=== PATIENT | female | born 1955 | race Caucasian/White ===

== ENCOUNTER 2022-07-02 13:03 | Emergency (ER) | payer BC ==
--- OUTSIDE RECORDS SUMMARY | 2022-07-02 13:07 | XMS REPORT | Continuity of Care Document ---
:1955 Author Organization [facility] t Address [address] [place] [address] Care Team Providers Name Role Phone Asked, No Pcp Primary Care Physician Unavailable Problems Condition Condition Condition Status Onset Resolution Last Treating Co mments Source Name Details Category Date Date Treatment Clinician Date Angina at Angina at Disease Active Met hodi rest rest [facility] 00:00: Hospita 00 l CAD CAD Disease Active 2016-06 Methodi (coronary (coronary 06-25 st artery artery 00:00: Hospita disease) disease) 00 l S/P CABG x S/P CABG x Disease Active 2016-06 M ethodi 2 <SOLIS to 2 <SOLIS 06-25 st LAD, DIMITRY to LAD, 00:00: Hospit a (Y-Graft DIMITRY 00 l off SOLIS) (Y-Graft to RAMUS> off SOLIS) to RAMUS> Acute Acute Disease Active 2016-06 Methodi pulmonary pulmonary 06-25 st insufficie insufficie 00:00: Ho spita ncy ncy 00 l Ascending Ascending Disease Active 2016-06 Met hodi aortic aortic 06-25 st aneurysm aneurysm 00:00: Hospit a (4.5 cm) (4.5 cm) 00 l Bicuspid Bicuspid Disease Active 2016-06 Metho di aortic aortic 06-25 st valve valve 00:00: Hospita 00 l Accelerate Accelerate Disease Active 2016-06 M ethodi d d 06-25 st hypertensi hypertensi 00:00: Ho spita on on 00 l Postoperat Postoperat Disease Active 2016-06 M ethodi lionel anemia lionel anemia 06-25 due to due to 00:00: Hospita acute acute 00 l blood loss blood loss 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 06-25 st 00:00: Hospita 00 l Metabolic Metabolic Disease Active 2016-06 Met hodi acidosis acidosis 06-25 st 00:00: Hospita 00 l Allergies, Adverse Reactions, Alerts Allergy Allergy Status Severity Reaction(s) Onset Inactive Treating Comm ents Source Name Type Date Date Clinician Al Lourenetta Active 2016-06 Severe Method i one ty to 06-[address] adverse 00:00: Hospita reaction 00 l s to drug Family History Family Member Diagnosis Comments Start Date Stop Date Source Natural father Heart disease [facility] Paternal aunt [facility] Paternal grandfather Heart disease [facility] Natural sister Cancer [facility] Natural sister Heart disease [facility] Social History Social Habit Start Date Stop Date Quantity Comments Source Alcohol intake 2019-05-30 2019-05-30 Current drinker Metho dist 00:00:00 00:00:00 of [facility] ([facility]) Alcohol Comment 2018-01-13 2018-01-13 socially [facility] 00:00:00 00:00:00 Hospital Tobacco use and 2018-01-12 2018-01-12 Smokeless tobacco [facility] exposure 00:00:00 00:00:00 non-user Hospital Sex Assigned At [birth year] [facility] 00:00[facility]00 00:[facility]:00 Hospital Smoking Status Start Date Stop Date Source Never smoked tobacco [facility] Medications Ordered Filled Start Stop Current Ordering Indication Dosage Frequency Signature Comments Components Source Medication Medication Date Date Medication? Clinician (SIG) Name Name LELO 2021-06 No LEVOTHYROXI 0-24 NE SODIUM 00:00: 150MCG TAB 00 LELO 2021-06 No LEVOTHYROXI 0-24 NE SODIUM 00:00: 150MCG TAB 00 LELO 2021-06 No LEVOTHYROXI 0-24 NE SODIUM 00:00: 150MCG TAB 00 Dose No Unknown 7-20 00:00: 00 Dose 2021-0 No Unknown 7-20 00:00: 00 Dose 2021-0 No Unknown 7-20 00:00: 00 levothyroxi 2021- No 1mcg ne 150 mcg 6-27 tablet 00:00: 00 levothyroxi 2021- No 1mcg ne 150 mcg 6-27 tablet 00:00: 00 levothyroxi 2022-0 No 1mcg ne 150 mcg 6-27 tablet 00:00: 00 levothyroxi 2022-0 No 1mcg ne 150 mcg 5-26 tablet 00:00: 00 levothyroxi 2022-0 No 1mcg ne 150 mcg 5-26 tablet 00:00: 00 levothyroxi 2022-0 No 1mcg ne 150 mcg 5-26 tablet 00:00: 00 Dose 2022-0 No Unknown 4-22 00:00: 00 Dose 2022-0 No Unknown 4-22 00:00: 00 Dose 2022-0 No Unknown 4-22 00:00: 00 Dose 2022-0 No Unknown 3-10 00:00: 00 Dose 2022-0 No Unknown 3-10 00:00: 00 Dose 2022-0 No Unknown 3-10 00:00: 00 Dose 2022-0 No Unknown 3-10 00:00: 00 Dose 2022-0 No Unknown 3-10 00:00: 00 Dose 2022-0 No Unknown 3-10 00:00: 00 Dose 2022-0 No Unknown 3-10 00:00: 00 Dose 2022-0 No Unknown 3-10 00:00: 00 Dose 2022-0 No Unknown 3-10 00:00: 00 Dose 2022-0 No Unknown 3-10 00:00: 00 Dose 2022-0 No Unknown 3-10 00:00: 00 Dose 2022-0 No Unknown 3-10 00:00: 00 Dose 2022-0 No Unknown 3-10 00:00: 00 Dose 2022-0 No Unknown 3-10 00:00: 00 Dose 2022-0 No Unknown 3-10 00:00: 00 Dose 2022-0 No Unknown 3-10 00:00: 00 Dose 2022-0 No Unknown 3-10 00:00: 00 Dose 2022-0 No Unknown 3-10 00:00: 00 Dose 2022-0 No Unknown 3-10 00:00: 00 Dose 2022-0 No Unknown 3-10 00:00: 00 Dose 2022-0 No Unknown 3-10 00:00: 00 Dose 2022-0 No Unknown 3-10 00:00: 00 Dose 2022-0 No Unknown 3-10 00:00: 00 Dose 2022-0 No Unknown 3-10 00:00: 00 Dose 2022-0 No Unknown 3-10 00:00: 00 Dose 2022-0 No Unknown 3-10 00:00: 00 Dose 2022-0 No Unknown 3-10 00:00: 00 Dose 2022-0 No Unknown 3-10 00:00: 00 Dose 2022-0 No Unknown 3-10 00:00: 00 Dose 2022-0 No Unknown 3-10 00:00: 00 Dose 2022-0 No Unknown 3-10 00:00: 00 Dose 2022-0 No Unknown 3-10 00:00: 00 Dose 2022-0 No Unknown 3-10 00:00: 00 Dose 2022-0 No Unknown 3-10 00:00: 00 Dose 2022-0 No Unknown 3-10 00:00: 00 Dose 2022-0 No Unknown 3-10 00:00: 00 Dose 2022-0 No Unknown 3-08 00:00: 00 Dose 2022-0 No Unknown 3-08 00:00: 00 Dose 2022-0 No Unknown 3-08 00:00: 00 Dose 2022-0 No Unknown 3-08 00:00: 00 Dose 2022-0 No Unknown 3-08 00:00: 00 Dose 2022-0 No Unknown 3-08 00:00: 00 levothyroxi 2022-0 No 1mcg ne 150 mcg 2-18 tablet 00:00: 00 levothyroxi 2022-0 No 1mcg ne 150 mcg 2-18 tablet 00:00: 00 levothyroxi 2-0 No 1mcg ne 150 mcg 2-18 tablet 00:00: 00 phentermine 1-1 No 1mg 37.5 mg 2-13 tablet 00:00: 00 phentermine 1-1 No 1mg 37.5 mg 2-13 tablet 00:00: 00 phentermine 1-1 No 1mg 37.5 mg 2-13 tablet 00:00: 00 amoxicillin 1-0 No 1mg 500 mg 6-28 capsule 00:00: 00 amoxicillin 1-0 No 1mg 500 mg 6-28 capsule 00:00: 00 amoxicillin 1-0 No 1mg 500 mg 6-28 capsule 00:00: 00 levothyroxi 2018-1 Yes 150ug QD Take 150 M ethodi ne 1-[address] (SYNTHROID, 14:33: mouth Hospi ta LEVOXYL) 37 every l 150 mcg morning. tablet carvedilol 2018-06 Yes 3.125mg Q.5D Take 3.125 Methodi (COREG) 1-[address] 3.125 MG 14:33: mouth 2 Hospit a tablet 37 (two) l times a day with meals. clopidogrel 2018-06 Yes 75mg QD Take 75 mg Methodi (PLAVIX) 75 1-[address] mg tablet 14:33: daily. Hospit a 37 l potassium 2018-06 Yes 10meq Q.5D Take 10 Meth renea chloride 1-[address] (MICRO-K) 14:33: mouth 2 Hospi ta 10 MEQ CR 37 (two) l capsule times a day. valsartan 2018-06 Yes 80mg QD Take 80 mg Me thodi (DIOVAN) 80 1-[address] MG tablet 14:33: daily. Hospit a 37 l furosemide 2018-06 Yes 40mg Q24H Take 40 mg M ethodi (LASIX) 40 1-[address] mg tablet 14:33: daily as Hosp lorna 37 needed. l aspirin 2018-06 Yes 81mg QD Take 81 mg Meth renea (ECOTRIN) 1-[address] 81 MG 14:33: daily. Hospita enteric 37 l coated tablet magnesium 2018-06 Yes 400mg QD Take 400 Met hodi oxide 1-[address] (MAG-OX) 14:33: mouth Hospita 400 mg 37 daily. l (241.3 mg magnesium) tablet levothyroxi 2018-06 Yes 150ug QD Take 150 M ethodi ne 1-[address] (SYNTHROID, 14:33: mouth Hospi ta LEVOXYL) 37 every l 150 mcg morning. tablet carvedilol 2018-06 Yes 3.125mg Q.5D Take 3.125 Methodi (COREG) 1-[address] 3.125 MG 14:33: mouth 2 Hospit a tablet 37 (two) l times a day with meals. clopidogrel 2018-06 Yes 75mg QD Take 75 mg Methodi (PLAVIX) 75 1-[address] mg tablet 14:33: daily. Hospit a 37 l potassium 2018-06 Yes 10meq Q.5D Take 10 Meth renea chloride 1-[address] (MICRO-K) 14:33: mouth 2 Hospi ta 10 MEQ CR 37 (two) l capsule times a day. valsartan 2018-06 Yes 80mg QD Take 80 mg Me thodi (DIOVAN) 80 1-[address] MG tablet 14:33: daily. Hospit a 37 l furosemide 2018-06 Yes 40mg Q24H Take 40 mg M ethodi (LASIX) 40 1-[address] mg tablet 14:33: daily as Hosp lorna 37 needed. l aspirin 2018-06 Yes 81mg QD Take 81 mg Meth renea (ECOTRIN) 1-[address] 81 MG 14:33: daily. Hospita enteric 37 l coated tablet levothyroxi 2018-06 Yes 150ug QD Take 150 M ethodi ne 1-[address] (SYNTHROID, 14:33: mouth Hospi ta LEVOXYL) 37 every l 150 mcg morning. tablet carvedilol 2018-06 Yes 3.125mg Q.5D Take 3.125 Methodi (COREG) 1-[address] 3.125 MG 14:33: mouth 2 Hospit a tablet 37 (two) l times a day with meals. clopidogrel 2018-06 Yes 75mg QD Take 75 mg Methodi (PLAVIX) 75 1-[address] mg tablet 14:33: daily. Hospit a 37 l potassium 2018-06 Yes 10meq Q.5D Take 10 Meth renea chloride 1-[address] (MICRO-K) 14:33: mouth 2 Hospi ta 10 MEQ CR 37 (two) l capsule times a day. valsartan 2018-06 Yes 80mg QD Take 80 mg Me thodi (DIOVAN) 80 1-[address] MG tablet 14:33: daily. Hospit a 37 l magnesium 2018-06 Yes 400mg QD Take 400 Met hodi oxide 1-[address] (MAG-OX) 14:33: mouth Hospita 400 mg 37 daily. l (241.3 mg magnesium) tablet furosemide 2018-06 Yes 40mg Q24H Take 40 mg M ethodi (LASIX) 40 1-[address] mg tablet 14:33: daily as Hosp lorna 37 needed. l aspirin 2018-06 Yes 81mg QD Take 81 mg Meth renea (ECOTRIN) 1-[address] 81 MG 14:33: daily. Hospita enteric 37 l coated tablet magnesium 2019-1 Yes 400mg QD Take 400 Met hodi oxide 1-[address] (MAG-OX) 14:33: mouth Hospita 400 mg 37 daily. l (241.3 mg magnesium) tablet neomycin-po 2018-0 No 3mg/mL- lymyxin-hyd 7-30 unit/mL rocort 3.5 00:00: -% mg-10,000 00 unit/mL-1 % ear drops,susp prednisone 2018-0 No 1mg 20 mg 7-30 tablet 00:00: 00 amoxicillin 2018-0 No 1mg 875 7-30 mg-potassiu 00:00: m 00 clavulanate 125 mg tablet Bromfed DM 0 No 5mg/5 2 mg-30 7-30 mL mg-10 mg/5 00:00: mL oral 00 syrup neomycin-po 2018-0 No 3mg/mL- lymyxin-hyd 7-30 unit/mL rocort 3.5 00:00: -% mg-10,000 00 unit/mL-1 % ear drops,susp prednisone 2018-0 No 1mg 20 mg 7-30 tablet 00:00: 00 amoxicillin 2018-0 No 1mg 875 7-30 mg-potassiu 00:00: m 00 clavulanate 125 mg tablet Bromfed DM 2018-0 No 5mg/5 2 mg-30 7-30 mL mg-10 mg/5 00:00: mL oral 00 syrup neomycin-po 2018-0 No 3mg/mL- lymyxin-hyd 7-30 unit/mL rocort 3.5 00:00: -% mg-10,000 00 unit/mL-1 % ear drops,susp prednisone 2018-0 No 1mg 20 mg 7-30 tablet 00:00: 00 amoxicillin 2018-0 No 1mg 875 7-30 mg-potassiu 00:00: m 00 clavulanate 125 mg tablet Bromfed DM 2018-0 No 5mg/5 2 mg-30 7-30 mL mg-10 mg/5 00:00: mL oral 00 syrup Immunizations Ordered Immunization Filled Immunization Date Status Commen ts Source Name Name pneumococcal 2022-04-21 Completed polysacchar 00:00:00 Vital Signs Vital Name Observation Time Observation Value Comments Source BP Systolic 2022-04-21 16:58:00 159 mm[Hg] BP Diastolic 2022-04-21 16:58:00 102 mm[Hg] Weight Measured 2022-04-21 16:58:00 170.00 pounds Height Measured 2022-04-21 16:58:00 60.24 inches Body Temperature 2022-04-21 16:58:00 98.40 degrees Heart Rate 2022-04-21 16:58:00 73.00 /min Respiratory Rate 2022-04-21 16:58:00 17.00 /min BP Systolic 2022-04-19 11:47:00 163 mm[Hg] BP Diastolic 2022-04-19 11:47:00 100 mm[Hg] Weight Measured 2022-04-19 11:47:00 171.00 pounds Height Measured 2022-04-19 11:47:00 60.24 inches Body Temperature 2022-04-19 11:47:00 98.00 degrees Heart Rate 2022-04-19 11:47:00 87.00 /min Respiratory Rate 2022-04-19 11:47:00 18.00 /min BP Systolic 2021-08-17 16:46:00 195 mm[Hg] BP Diastolic 2021-08-17 16:46:00 114 mm[Hg] Weight Measured 2021-08-17 16:46:00 175.20 pounds Height Measured 2021-08-17 16:46:00 60.24 inches Body Temperature 2021-08-17 16:46:00 98.10 degrees Heart Rate 2021-08-17 16:46:00 96.00 /min Respiratory Rate 2021-08-17 16:46:00 BP Systolic 2021-05-25 16:26:00 158 mm[Hg] BP Diastolic 2021-05-25 16:26:00 84 mm[Hg] Weight Measured 2021-05-25 16:26:00 175.20 pounds Height Measured 2021-05-25 16:26:00 60.24 inches Body Temperature 2021-05-25 16:26:00 98.10 degrees Heart Rate 2021-05-25 16:26:00 78.00 /min Respiratory Rate 2021-05-25 16:26:00 BP Systolic 2021-04-10 16:50:00 157 mm[Hg] BP Diastolic 2021-04-10 16:50:00 98 mm[Hg] Weight Measured 2021-04-10 16:50:00 173.00 pounds Height Measured 2021-04-10 16:50:00 60.24 inches Body Temperature 2021-04-10 16:50:00 98.20 degrees Heart Rate 2021-04-10 16:50:00 91.00 /min Respiratory Rate 2021-04-10 16:50:00 16.00 /min BP Systolic 2020-12-08 16:50:00 153 mm[Hg] BP Diastolic 2020-12-08 16:50:00 84 mm[Hg] Weight Measured 2020-12-08 16:50:00 173.40 pounds Height Measured 2020-12-08 16:50:00 60.24 inches Body Temperature 2020-12-08 16:50:00 98.00 degrees Heart Rate 2020-12-08 16:50:00 78.00 /min Respiratory Rate 2020-12-08 16:50:00 26.00 /min BP Systolic 2019-01-09 16:36:00 135 mm[Hg] BP Diastolic 2019-01-09 16:36:00 83 mm[Hg] Weight Measured 2019-01-09 16:36:00 161.60 pounds Height Measured 2019-01-09 16:36:00 60.24 inches Body Temperature 2019-01-09 16:36:00 97.30 degrees Heart Rate 2019-01-09 16:36:00 74.00 /min Respiratory Rate 2019-01-09 16:36:00 Procedures This patient has no known procedures. Plan of Care Planned Activity Planned Date Details Comments Source Future Scheduled 2022-06-03 COVID-19 VACCINE (#1) [facility] Test 09:02:14 [code = COVID-19 VACCINE (#1)] Future Scheduled 2022-06-03 Screening for [facility] Test 09:02:14 malignant neoplasm of cervix (procedure) [code = 087963387] Future Scheduled 2022-06-03 BREAST CANCER [facility] Test 09:02:14 SCREENING [code = BREAST CANCER SCREENING] Future Scheduled 2022-06-03 COLONOSCOPY SCREENING [facility] Test 09:02:14 [code = COLONOSCOPY SCREENING] Future Scheduled 2022-06-03 SHINGLES VACCINES (1 Met [facility] Test 09:02:14 of 2) [code = SHINGLES VACCINES (1 of 2)] Future Scheduled 2022-06-03 INFLUENZA VACCINE Method [facility] Test 09:02:14 [code = INFLUENZA VACCINE] Future Scheduled 2022-04-15 HEPATITIS B VACCINES Met [facility] Test 10:35:37 (1 of 3 - 3-dose series) [code = HEPATITIS B VACCINES (1 of 3 - 3-dose series)] Future Scheduled 2022-04-15 COVID-19 VACCINE (#1) [facility] Test 10:35:37 [code = COVID-19 VACCINE (#1)] Future Scheduled 2022-04-15 Pneumococcal Vaccine: [facility] Test 10:35:37 Pediatrics (0 to 5 Years) and At-Risk Patients (6 to 64 Years) (1 - PCV) [code = Pneumococcal Vaccine: Pediatrics (0 to 5 Years) and At-Risk Patients (6 to 64 Years) (1 - PCV)] Future Scheduled 2022-04-15 Hepatitis C screening [facility] Test 10:35:37 (procedure) [code = 362004817] Future Scheduled 2022-04-15 Screening for [facility] Test 10:35:37 malignant neoplasm of cervix (procedure) [code = 792711259] Future Scheduled 2022-04-15 BREAST CANCER [facility] Test 10:35:37 SCREENING [code = BREAST CANCER SCREENING] Future Scheduled 2022-04-15 COLONOSCOPY SCREENING [facility] Test 10:35:37 [code = COLONOSCOPY SCREENING] Future Scheduled 2022-04-15 SHINGLES VACCINES (1 Met [facility] Test 10:35:37 of 2) [code = SHINGLES VACCINES (1 of 2)] Future Scheduled 2022-04-15 INFLUENZA VACCINE Method [facility] Test 10:35:37 [code = INFLUENZA VACCINE] Future Scheduled 2022-04-15 HEPATITIS B VACCINES Met [facility] Test 10:35:37 (1 of 3 - 3-dose series) [code = HEPATITIS B VACCINES (1 of 3 - 3-dose series)] Future Scheduled 2022-04-15 COVID-19 VACCINE (#1) [facility] Test 10:35:37 [code = COVID-19 VACCINE (#1)] Future Scheduled 2022-04-15 Pneumococcal Vaccine: [facility] Test 10:35:37 Pediatrics (0 to 5 Years) and At-Risk Patients (6 to 64 Years) (1 - PCV) [code = Pneumococcal Vaccine: Pediatrics (0 to 5 Years) and At-Risk Patients (6 to 64 Years) (1 - PCV)] Future Scheduled 2022-04-15 Hepatitis C screening [facility] Test 10:35:37 (procedure) [code = 401022874] Future Scheduled 2022-04-15 Screening for [facility] Test 10:35:37 malignant neoplasm of cervix (procedure) [code = 276888460] Future Scheduled 2022-04-15 BREAST CANCER [facility] Test 10:35:37 SCREENING [code = BREAST CANCER SCREENING] Future Scheduled 2022-04-15 COLONOSCOPY SCREENING [facility] Test 10:35:37 [code = COLONOSCOPY SCREENING] Future Scheduled 2022-04-15 SHINGLES VACCINES (1 Met [facility] Test 10:35:37 of 2) [code = SHINGLES VACCINES (1 of 2)] Future Scheduled 2022-04-15 INFLUENZA VACCINE Method [facility] Test 10:35:37 [code = INFLUENZA VACCINE] Goal Plan of Care Note [code = 64569-0] Goal Plan of Care Note [code = 74795-2] Goal Plan of Care Note [code = 49888-0] Goal Plan of Care Note [code = 52314-0] Goal Plan of Care Note [code = 30595-0] Goal Plan of Care Note [code = 36432-7] Goal Plan of Care Note [code = 85576-2] Goal Plan of Care Note [code = 22411-1] Goal Plan of Care Note [code = 51832-5] Goal Plan of Care Note [code = 65993-4] Goal Plan of Care Note [code = 23742-9] Goal Plan of Care Note [code = 47051-5] Goal Plan of Care Note [code = 88752-3] Goal Plan of Care Note [code = 50508-9] Goal Plan of Care Note [code = 96173-6] Goal Plan of Care Note [code = 13634-4] Goal Plan of Care Note [code = 83567-4] Goal Plan of Care Note [code = 07843-4] Goal Plan of Care Note [code = 36647-3] Goal Plan of Care Note [code = 06752-2] Goal Plan of Care Note [code = 66118-5] Goal Plan of Care Note [code = 29745-7] Goal Plan of Care Note [code = 83469-6] Goal Plan of Care Note [code = 66216-7] Goal Plan of Care Note [code = 41688-4] Goal Plan of Care Note [code = 20242-8] Goal Plan of Care Note [code = 32966-0] Goal Plan of Care Note [code = 82752-7] Goal Plan of Care Note [code = 38490-9] Goal Plan of Care Note [code = 35532-4] Goal Plan of Care Note [code = 84506-1] Goal Plan of Care Note [code = 42569-6] Goal Plan of Care Note [code = 63773-2] Goal Plan of Care Note [code = 02215-5] Goal Plan of Care Note [code = 84825-1] Goal Plan of Care Note [code = 92158-7] Goal Plan of Care Note [code = 14310-9] Goal Plan of Care Note [code = 15077-0] Goal Plan of Care Note [code = 62957-1] Goal Plan of Care Note [code = 20163-2] Goal Plan of Care Note [code = 74165-3] Goal Plan of Care Note [code = 43353-8] Goal Plan of Care Note [code = 55060-6] Goal Plan of Care Note [code = 29511-4] Goal Plan of Care Note [code = 55687-3] Encounters Start End Encounter Admission Attending Care Care Encounter Source Date/Time Date/Time Type Type Clinicians Facility Department ID 2022-04-22 2022-04-22 Outpatient [facility] SFA [id number] Brandyn 16:55:52 16:55:52 1110 F Cleve 2022-04-21 2022-04-21 Outpatient [facility] SFA [id number] Brandyn 16:51:57 16:51:57 1109 F Windom 2022-04-21 2022-04-21 Outpatient [id number] 00:00:00 00:00:00 Visit [id number] -[id number]-f76 [id number] 2022-04-19 2022-04-19 Outpatient [id number] 00:00:00 00:00:00 Visit [id number] [id number] -[id number] 302c7a 2022-04-05 2022-04-05 Outpatient [id number] 00:00:00 00:00:00 Visit z6p1-650h [id number]-8 -5w2h-98l e9i-93hv04 [id number] 68218g Results Test Description Test Time Test Comments Results Result Comments Source TSH, THIRD GENERATION 2022-04-20 00:00:00 Test Item Value Reference Range Interpretation Comme nts TSH, THIRD GENERATION (test code = 2821) 0.053 UIU/ML TSH, THIRD [id number] 00:00:00 Test Item Value Reference Range Interpretation Comments TSH, THIRD GENERATION (test code 0.053 UIU/ML = 2821) TSH, THIRD [id number] 00:00:00 Test Item Value Reference Range Interpretation Comments TSH, THIRD GENERATION (test code 0.053 UIU/ML = 2821) TSH + FREE T4 [id number] 09:57:23 Test Item Value Reference Range Interpretation Comments TSH, THIRD 0.568 UIU/ML 0.400-4.100 GENERATION (test code = 2821) FREE T4 (THYROXINE) 1.75 NG/DL 0.80-1.90 UNLESS OTHERWISE (test code = 2823) INDICATED , ALL TESTING PERFORMED [facility], [facility]. [address] [place] [id number] [place] [address] DIRECTOR: Diana PARKERIA NUMBER [id number] [facility] ACCREDITATION N O. [id number] TSH + FREE T4 [id number] 00:00:00 Test Item Value Reference Range Interpretation Comments TSH, THIRD GENERATION (test code 0.568 UIU/ML = 2821) FREE T4 (THYROXINE) (test code = 1.75 NG/DL 2823) TSH + FREE T4 [id number] 00:00:00 Test Item Value Reference Range Interpretation Comments TSH, THIRD GENERATION (test code 0.568 UIU/ML = 2821) FREE T4 (THYROXINE) (test code = 1.75 NG/DL 2823) TSH + FREE T4 [id number] 00:00:00 Test Item Value Reference Range Interpretation Comments TSH, THIRD GENERATION (test code 0.568 UIU/ML = 2821) FREE T4 (THYROXINE) (test code = 1.75 NG/DL 2823) TSH + FREE T4 [id number] 00:00:00 Test Item Value Reference Range Interpretation Comments TSH, THIRD GENERATION (test code 0.568 UIU/ML = 2821) FREE T4 (THYROXINE) (test code = 1.75 NG/DL 2823) TSH + FREE T4 [id number] 00:00:00 Test Item Value Reference Range Interpretation Comments TSH, THIRD GENERATION (test code 0.568 UIU/ML = 2821) FREE T4 (THYROXINE) (test code = 1.75 NG/DL 2823) TSH + FREE T4 [id number] 00:00:00 Test Item Value Reference Range Interpretation Comments TSH, THIRD GENERATION (test code 0.568 UIU/ML = 2821) FREE T4 (THYROXINE) (test code = 1.75 NG/DL 2823) TSH + FREE T4 [id number] 00:00:00 Test Item Value Reference Range Interpretation Comments TSH, THIRD GENERATION (test code 0.568 UIU/ML = 2821) FREE T4 (THYROXINE) (test code = 1.75 NG/DL 2823) TSH + FREE T4 [id number] 00:00:00 Test Item Value Reference Range Interpretation Comments TSH, THIRD GENERATION (test code 0.568 UIU/ML = 2821) FREE T4 (THYROXINE) (test code = 1.75 NG/DL 2823) TSH + FREE T4 [id number] 00:00:00 Test Item Value Reference Range Interpretation Comments TSH, THIRD GENERATION (test code 0.568 UIU/ML = 2821) FREE T4 (THYROXINE) (test code = 1.75 NG/DL 2823) THYROID II PROFILE (TU,T4,FTI,TSH)2021-05-27 04:53:28 Test Item Value Reference Range Interpretation Comments T-UPTAKE (test 30.2 % 24.3-39.0 code = 2817) THYROX. BIND. 1.1 0.8-1.3 NOTE: THYROXI NE CAPAC. (test code BINDING CA PACITY IS = 20737) INVERSELY RELAT ED TO T-UPTAKE,DECREA SED WITH HYPERTHYROIDISM AND LOW THYROID BINDING GLOBULIN (TBG),INCREASED IN HYPOTHYROIDISM OR WITH HIGH TBG. T4 (THYROXINE) 9.8 UG/DL 4.5-10.5 (test code = 2819) CORRECTED T4 (FTI) 8.9 UG/DL 4.2-11.6 (test code = 2820) TSH, THIRD 0.604 UIU/ML 0.400-4.100 UNLESS OTHERWI SE GENERATION (test INDICATED, ALL TESTING code = 2821) PERFORMED [facility] [address] [place] [address] [address] LAB[address]ATORY DIRE CTOR: JULIO SINGH M.D. CLIA NUMBER [id number] [place] [id number] THYROID II PROFILE (T3U, T4, T7, TSH)2021-05-27 00:00:00 Test Item Value Reference Range Interpretation Comments T-UPTAKE (test code = 2816) 30.2 % THYROX. BIND. CAPAC. (test code 1.1 = 52264) T4 (THYROXINE) (test code = 9.8 UG/DL 281) CORRECTED T4 (FTI) (test code = 8.9 UG/DL 2820) TSH, THIRD GENERATION (test code 0.604 UIU/ML = 2821) THYROID II PROFILE (T3U, T4, T7, TSH)2021-05-27 00:00:00 Test Item Value Reference Range Interpretation Comments T-UPTAKE (test code = 2817) 30.2 % THYROX. BIND. CAPAC. (test code 1.1 = 62456) T4 (THYROXINE) (test code = 9.8 UG/DL 2819) CORRECTED T4 (FTI) (test code = 8.9 UG/DL 2820) TSH, THIRD GENERATION (test code 0.604 UIU/ML = 2821) THYROID II PROFILE (T3U, T4, T7, TSH)2021-05-27 00:00:00 Test Item Value Reference Range Interpretation Comments T-UPTAKE (test code = 2817) 30.2 % THYROX. BIND. CAPAC. (test code 1.1 = 67517) T4 (THYROXINE) (test code = 9.8 UG/DL 2819) CORRECTED T4 (FTI) (test code = 8.9 UG/DL 2820) TSH, THIRD GENERATION (test code 0.604 UIU/ML = 2821) THYROID II PROFILE (T3U, T4, T7, TSH)2021-05-27 00:00:00 Test Item Value Reference Range Interpretation Comments T-UPTAKE (test code = 7) 30.2 % THYROX. BIND. CAPAC. (test code 1.1 = 98866) T4 (THYROXINE) (test code = 9.8 UG/DL 2819) CORRECTED T4 (FTI) (test code = 8.9 UG/DL 2820) TSH, THIRD GENERATION (test code 0.604 UIU/ML = 2821) THYROID II PROFILE (T3U, T4, T7, TSH)2021-05-27 00:00:00 Test Item Value Reference Range Interpretation Comments T-UPTAKE (test code = 2816) 30.2 % THYROX. BIND. CAPAC. (test code 1.1 = 13626) T4 (THYROXINE) (test code = 9.8 UG/DL 9) CORRECTED T4 (FTI) (test code = 8.9 UG/DL 2820) TSH, THIRD GENERATION (test code 0.604 UIU/ML = 2821) THYROID II PROFILE (T3U, T4, T7, TSH)2021-05-27 00:00:00 Test Item Value Reference Range Interpretation Comments T-UPTAKE (test code = 2816) 30.2 % THYROX. BIND. CAPAC. (test code 1.1 = 58592) T4 (THYROXINE) (test code = 9.8 UG/DL 2819) CORRECTED T4 (FTI) (test code = 8.9 UG/DL 2820) TSH, THIRD GENERATION (test code 0.604 UIU/ML = 2821)
[2022-07-02] MEDS ORDERED: ASPIRIN 81 MG CHEWABLE TABLET ONE (13:55)
--- NOTE | 2022-07-02 14:11 | RAD REPORT ---
EXAM DESCRIPTION: RAD - Chest Single View - 07/02/2022 2:02 pm CLINICAL HISTORY: left side neck pain, chest pain COMPARISON: Portable 04/11/2017 TECHNIQUE: AP portable chest image was obtained 07/02/2022 2:02 pm . FINDINGS: Lung volumes are low. No focal mass or consolidation. No significant failure or volume ove rload. Sternotomy wires have been placed since prior imaging. Numerous surgical clips are seen adjacent to t he upper mediastinum. Heart and vasculature are normal. No measurable pleural effusion and no pneumothorax. No acute bony abnormality seen. No acute aortic findings suspected. IMPRESSION: No acute cardiopulmonary process.
[2022-07-02 14:43] LABS: Absolute Lymphocytes (CBC) 2.6 K/uL (0.7-4.9); Lymphocytes % 33.6 % (15.3-44.8); MCV 89.7 fL (80-100); MPV 6.2 fL (7.6-11.3); RBC Red Blood Cell Count 4.91 M/uL (3.86-4.86)
[2022-07-02 14:45] LABS: Protime INR 0.92
[2022-07-02 15:01] LABS: Magnesium 2.4 mg/dL (1.6-2.4); Potassium 3.3 mmol/L (3.5-5.1); Troponin High Sensitivity 5.1 pg/mL (<58.9)
[2022-07-02] MEDS ORDERED: POTASSIUM 25 MEQ EFFERV TAB ONE (15:16)
--- NOTE | 2022-07-02 17:36 | EDPHYS ---
Physician Documentation [facility] Name: Karissa Aden Age: 66 yrs Sex: Female : 1955 Arrival Date: 07/02/2022 Time: 13:05 Bed 12 Private MD: ED Physician Adi Hilton HPI: 07/02 13:33 This 66 yrs old Female presents to ER via EMS with complaints of High Blood Pressure. cp 13:33 The patient has elevated blood pressure and discovered this work. cp 13:33 Onset: The symptoms/episode began/occurred today, while at work. cp 13:33 Associated signs and symptoms: Pertinent negatives: chest pain, visual changes, cp vomiting, weakness, abdominal pain. 13:33 Patient reports checking blood pressure at work today and observing it to be elevated. cp Patient reports noting pain to left side of neck. Admits she felt stressed before checking blood pressure. Sent to ED from work for evaluation. Historical: - Allergies: 13:11 No Known Allergies; iw - Home Meds: 13:11 valsartan 320 mg oral tab 1 tab once daily [Active]; carvedilol oral 2 times per day iw [Active]; clopidogrel 75 mg oral tab 1 tab once daily [Active]; furosemide 40 mg Oral tab 1 tab once daily [Active]; levothyroxine 137 mcg tab 1 tab once daily [Active]; - PMHx: 13:11 Hypertensive disorder; iw - PSHx: 13:11 CABG; iw ROS: 13:40 Constitutional: Negative for fever, poor PO intake. cp 13:40 Eyes: Negative for injury, pain, redness, and discharge. cp 13:40 Neck: Positive for pain at rest, of the left lateral neck. 13:40 Cardiovascular: Negative for chest pain, palpitations. 13:40 Respiratory: Negative for cough, shortness of breath, wheezing. 13:40 Abdomen/GI: Negative for abdominal pain, nausea, vomiting, and diarrhea. 13:40 Back: Negative for pain at rest, pain with movement. 13:40 Skin: Negative for cellulitis, rash. 13:40 Neuro: Negative for altered mental status, headache, weakness. 13:40 All other systems are negative. Exam: 13:24 ECG was reviewed by the Attending Physician. cp 13:45 Constitutional: The patient appears in no acute distress, alert, awake, cp non-diaphoretic, non-toxic, well developed, well nourished. 13:45 Head/Face: Normocephalic, atraumatic. cp 13:45 Eyes: Periorbital structures: appear normal, Conjunctiva: normal, no exudate, no injection, Sclera: no appreciated abnormality, Lids and lashes: appear normal, bilaterally. 13:45 ENT: External ear(s): are unremarkable, Nose: is normal, Mouth: Lips: moist, Oral mucosa: moist, Posterior pharynx: Airway: no evidence of obstruction, patent. 13:45 Neck: External neck: tenderness, that is mild, left lateral neck, ROM/movement: limited range of motion, is not appreciated, nuchal rigidity, is not appreciated. 13:45 Chest/axilla: Inspection: normal, Palpation: is normal, no crepitus, no tenderness. 13:45 Cardiovascular: Rate: normal, Rhythm: regular. 13:45 Respiratory: the patient does not display signs of respiratory distress, Respirations: normal, no use of accessory muscles, no retractions, labored breathing, is not present, Breath sounds: are clear throughout, no decreased breath sounds, no stridor, no wheezing. 13:45 Abdomen/GI: Inspection: abdomen appears normal, Palpation: abdomen is soft and non-tender, in all quadrants. 13:45 Back: pain, is absent, ROM is normal. 13:45 Skin: no rash present. 13:45 Neuro: Orientation: to person, place \T\ time. Mentation: is normal, Motor: moves all fours, strength is normal, Sensation: is normal. 17:10 ECG was reviewed by the Attending Physician. cp Vital Signs: 13:50 BP 164 / 95; Pulse 68; Resp 16; Pulse Ox 100% ; Weight 61.23 kg; Height 5 ft. 0 in. mb9 (152.40 cm); Pain 0/10; 14:11 BP 172 / 89; Pulse 73; Resp 14; Pulse Ox 100% on R/A; Pain 0/10; mb9 15:21 BP 162 / 101; Pulse 76; Resp 16; Pulse Ox 100% on R/A; Pain 0/10; mb9 16:14 BP 151 / 93; Pulse 88; Resp 14; Pulse Ox 100% on R/A; mb9 17:34 BP 155 / 94; Pulse 72; Resp 16; Pulse Ox 100% on R/A; Pain 0/10; mb9 13:50 Body Mass Index 26.37 (61.23 kg, 152.40 cm) mb9 NIH Stroke Scale Scores: 13:17 NIHSS Score: 0 mb9 MDM: 13:09 Patient medically screened. cp 17:35 Data reviewed: vital signs, nurses notes, lab test result(s), EKG, radiologic studies, cp plain films. 17:35 Consideration of Admission/Observation Escalation of care including cp admission/observation considered. I considered the following discharge prescriptions or medication management in the emergency department Medications were administered in the Emergency Department. See MAR. Test considered but Not performed: Other Details CT chest. Care significantly affected by the following chronic conditions: Hypertension. 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 Response to treatment: the patient's symptoms have markedly improved after treatment, and as a result, I will discharge patient. 07/02 13:29 Order name: Basic Metabolic Panel; Complete Time: 15:01 07/02 15:02 Interpretation: Normal except: K 3.3; GFR 75. 07/02 13:29 Order name: CBC with Diff; Complete Time: 14:55 07/02 14:55 Interpretation: Normal except: RBC 4.91; MPV 6.2; EOSINOPHIL % 4.6. 07/02 13:29 Order name: Magnesium; Complete Time: 15:01 07/02 13:29 Order name: NT PRO-BNP; Complete Time: 15:01 cp 07/02 15:19 Interpretation: Abnormal: NT PRO-BNP 244. cp 07/02 13:29 Order name: PT-INR; Complete Time: 14:55 cp 07/02 14:56 Interpretation: Reviewed. 07/02 13:29 Order name: Troponin HS; Complete Time: 15:01 07/02 15:02 Interpretation: Troponin HS 5.1; Reviewed. 07/02 13:29 Order name: XRAY Chest (1 view); Complete Time: 14:17 cp 07/02 14:17 Interpretation: Report review. 07/02 13:29 Order name: EKG; Complete Time: 13:29 cp 07/02 13:29 Order name: Cardiac monitoring; Complete Time: 13:50 cp 07/02 13:29 Order name: EKG - Nurse/Tech; Complete Time: 13:50 cp 07/02 16:32 Order name: Troponin High Sensitivity; Complete Time: 17:22 mb9 07/02 13:29 Order name: IV Saline Lock; Complete Time: 14:31 cp 07/02 13:29 Order name: Labs collected and sent; Complete Time: 14:31 cp 07/02 13:29 Order name: O2 Per Protocol; Complete Time: 13:50 cp 07/02 13:29 Order name: O2 Sat Monitoring; Complete Time: 13:50 cp 07/02 15:19 Order name: Vital Signs: please update blood pressure; Complete Time: 15:21 cp 07/02 16:33 Order name: EKG - Nurse/Tech; Complete Time: 17:01 mb9 EC:24 Rate is 64 beats/min. Rhythm is regular. FL interval is normal. QRS interval is cp prolonged at 132 msec. QT interval is normal. T waves are Inverted in leads III, aVR. Interpreted by me. Reviewed by me. 17:10 Rate is 75 beats/min. Rhythm is regular. FL interval is normal. QRS interval is cp prolonged at 122 msec. QT interval is normal. T waves are Inverted in leads III, aVR, V2, V3. Interpreted by me. Reviewed by me. Administered Medications: 13:59 Drug: Aspirin Chewable Tablet 162 mg Route: PO; mb9 14:15 Follow up: Response: No adverse reaction mb9 15:21 Drug: Potassium Effervescent Tablet 50 mEq Route: PO; mb9 16:32 Follow up: Response: No adverse reaction mb9 16:32 Not Given (Patient Refused): Tylenol 650 mg PO once mb9 Disposition: 07/03 12:19 Co-signature as Attending Physician, Adi Hilton DO I reviewed the patient's care ms3 provided by the Advanced Practice Provider and agree with the diagnosis and treatment plan. Disposition Summary: 07/02/22 17:35 Discharge Ordered Location: Home cp Problem: new cp Symptoms: have improved cp Condition: Stable cp Diagnosis - Hypertensive heart disease without heart failure cp - Acute pain, not elsewhere classified cp Followup: cp - With: Private Physician - When: 2 - 3 days - Reason: Recheck today's complaints Discharge Instructions: - Hypertension, Adult cp - Form - Blood Pressure Record Sheet cp - Discharge Summary Sheet mb9 - Form - Excuse from Work, School, or Physical Activity cp - How to Take Your Blood Pressure cp Forms: - Medication Reconciliation Form cp - Work release form mb9 - Thank You Letter cp - Antibiotic Education cp - Prescription Opioid Use cp NIH Stroke Scale - NIH Stroke Score Date: 07/02/2022 Time: 13:17 Total Score = 0 1a. Level of Consciousness (LOC) - 0(Alert) 1b. Level of Consciousness (LOC) (Month \T\ Age) - 0(Both) 1c. LOC Commands (Open \T\ Closes Eyes/Awake Overnight Monitor) - 0(Both) 2. Best Gaze (Lateral Gaze Paresis) - 0(Normal) 3. Visual Field Loss - 0(No visual loss) 4. Facial Palsy - 0(Normal) 5a. Left Arm: Motor (10-second hold) - 0(No drift) 5b. Right Arm: Motor (10-second hold) - 0(No drift) 6a. Left Leg: Motor (5-second hold - always test supine) - 0(No drift) 6b. Right Leg: Motor (5-second hold - always test supine) - 0(No drift) 7. Limb Ataxia (finger/nose \T\ heel/valera - test with eyes open) - 0(Absent) 8. Sensory Loss (pinprick arms/legs/face) - 0(Normal) 9. Best Language: Aphasia (description/naming/reading) - 0(No aphasia) 10. Dysarthria (speech clarity - read or repeat words) - 0(Normal) 11. Extinction and Inattention (visual/tactile/auditory/spatial/personal) - 0(No abnormality) Initials: mb9 Signatures: Dispatcher [employer] Jovanna Amaya, Kota Mccarty RN, PA PA cp Sims, Marcus, DO DO ms3 Tiffany Alvarez RN RN mb9
--- NOTE | 2022-07-02 17:36 | ER ---
Nurse's Notes [facility] Name: Karissa Aden Age: 66 yrs Sex: Female : 1955 Arrival Date: 07/02/2022 Time: 13:05 Bed 12 Private MD: Diagnosis: Hypertensive heart disease without heart failure;Acute pain, not elsewhere classified Presentation: 07/02 13:08 Chief complaint: EMS states: pt c/o pulling sensation in left side of neck/jaw and down iw left arm and her BP was high, she states that its been happening over the past week, she ttok her BP medicine this morning. Coronavirus screen: At this time, the client does not indicate any symptoms associated with coronavirus-19. Ebola Screen: Patient negative for fever greater than or equal to 101.5 degrees Fahrenheit, and additional compatible Ebola Virus Disease symptoms Patient denies exposure to infectious person. Patient denies travel to an Ebola-affected area in the 21 days before illness onset. No symptoms or risks identified at this time. Initial Sepsis Screen: Does the patient meet any 2 criteria? No. Patient's initial sepsis screen is negative. Does the patient have a suspected source of infection? No. Patient's initial sepsis screen is negative. Risk Assessment: Do you want to hurt yourself or someone else? Patient reports no desire to harm self or others. Onset of symptoms was June 25, 2022. 13:08 Method Of Arrival: EMS: [facility] iw 13:08 Acuity: SANT[facility] 3 iw Historical: - Allergies: 13:11 No Known Allergies; iw - Home Meds: 13:11 valsartan 320 mg oral tab 1 tab once daily [Active]; carvedilol oral 2 times per day iw [Active]; clopidogrel 75 mg oral tab 1 tab once daily [Active]; furosemide 40 mg Oral tab 1 tab once daily [Active]; levothyroxine 137 mcg tab 1 tab once daily [Active]; - PMHx: 13:11 Hypertensive disorder; iw - PSHx: 13:11 CABG; iw Screenin:17 [facility] ED Fall Risk Assessment (Adult) History of falling in the last 3 months, mb9 including since admission No falls in past 3 months (0 pts) Confusion or Disorientation No (0 pts) Intoxicated or Sedated No (0 pts) Impaired Gait No (0 pts) Mobility Assist Device Used No (0 pt) Altered Elimination No (0 pt) Score/Fall Risk Level 0 - 2 = Low Risk Oriented to surroundings, Maintained a safe environment. Abuse screen: Denies threats or abuse. Nutritional screening: No deficits noted. Tuberculosis screening: No symptoms or risk factors identified. Assessment: 13:15 General: Appears in no apparent distress. comfortable, Behavior is calm, cooperative, mb9 appropriate for age. Pain: Complains of pain in left side of jaw and arm Pain radiates to left arm Pain currently is 5 out of 10 on a pain scale. Quality of pain is described as aching, Pain began 1 week ago Is intermittent. Neuro: Rush Agitation-Sedation Scale (RASS): 0 - Alert and Calm Level of Consciousness is awake, alert, obeys commands, Oriented to person, place, time, situation, Appropriate for age Cleaner And [place] are equal bilaterally Moves all extremities. Gait is steady, Speech is normal, Facial symmetry appears normal, Pupils are PERRLA, Intact. Neuro: Reports numbness that comes and goes. Cardiovascular: Denies chest pain, Heart tones S1 S2 present Capillary refill < 3 seconds is brisk Patient's skin is warm and dry. Rhythm is regular. Respiratory: Airway is patent Respiratory effort is even, unlabored, Respiratory pattern is regular, symmetrical. GI: Abdomen is flat, non-distended. : No signs and/or symptoms were reported regarding the genitourinary system. EENT: No signs and/or symptoms were reported regarding the EENT system. Derm: Skin is pink, warm \T\ dry. Musculoskeletal: Range of motion: intact in all extremities. 14:11 Reassessment: No changes from previously documented assessment. Patient and/or family mb9 updated on plan of care and expected duration. Pain level reassessed. Patient is alert, oriented x 3, equal unlabored respirations, skin warm/dry/pink. Patient states feeling better. 15:12 Reassessment: No changes from previously documented assessment. Patient and/or family mb9 updated on plan of care and expected duration. Pain level reassessed. Patient is alert, oriented x 3, equal unlabored respirations, skin warm/dry/pink. Patient states feeling better. 16:14 Reassessment: No changes from previously documented assessment. Patient and/or family mb9 updated on plan of care and expected duration. Pain level reassessed. Patient is alert, oriented x 3, equal unlabored respirations, skin warm/dry/pink. Patient states feeling better. Patient states symptoms have improved. 17:30 Reassessment: No changes from previously documented assessment. Patient and/or family mb9 updated on plan of care and expected duration. Pain level reassessed. Patient is alert, oriented x 3, equal unlabored respirations, skin warm/dry/pink. Patient states feeling better. Patient states symptoms have improved. Vital Signs: 13:50 BP 164 / 95; Pulse 68; Resp 16; Pulse Ox 100% ; Weight 61.23 kg; Height 5 ft. 0 in. mb9 (152.40 cm); Pain 0/10; 14:11 BP 172 / 89; Pulse 73; Resp 14; Pulse Ox 100% on R/A; Pain 0/10; mb9 15:21 BP 162 / 101; Pulse 76; Resp 16; Pulse Ox 100% on R/A; Pain 0/10; mb9 16:14 BP 151 / 93; Pulse 88; Resp 14; Pulse Ox 100% on R/A; mb9 17:34 BP 155 / 94; Pulse 72; Resp 16; Pulse Ox 100% on R/A; Pain 0/10; mb9 13:50 Body Mass Index 26.37 (61.23 kg, 152.40 cm) mb9 NIH Stroke Scale Scores: 13:17 NIHSS Score: 0 mb9 ED Course: 13:05 Patient arrived in ED. eb 13:08 Kota Mcknight PA is PHCP. cp 13:08 Adi Hilton DO is Attending Physician. cp 13:11 Triage completed. iw 13:14 Tiffany Alvarez, RN is Primary Nurse. mb9 13:15 Arm band placed on. mb9 13:17 EKG done, by actuarial technician. reviewed by Kota MENDOZA. mb9 13:18 Placed in gown. Bed in low position. Call light in reach. Side rails up X 1. Client mb9 placed on continuous cardiac and pulse oximetry monitoring. NIBP monitoring applied. pvc monitor on. 14:01 Patient has correct armband on for positive identification. Warm blanket given. Pulse mm9 ox on. NIBP on. 14:04 XRAY Chest (1 view) In Process Unspecified. EDMS 14:31 Inserted saline lock: 22 gauge in right wrist, using aseptic technique. Blood mb9 collected. done by mae. 14:31 Basic Metabolic Panel Sent. mb9 14:31 CBC with Diff Sent. mb9 14:31 Magnesium Sent. mb9 14:31 NT PRO-BNP Sent. mb9 14:31 PT-INR Sent. mb9 14:31 Troponin HS Sent. mb9 17:01 Troponin High Sensitivity Sent. mb9 17:31 No provider procedures requiring assistance completed. IV discontinued, intact, mb9 bleeding controlled, No redness/swelling at site. Pressure dressing applied. Administered Medications: 13:59 Drug: Aspirin Chewable Tablet 162 mg Route: PO; mb9 14:15 Follow up: Response: No adverse reaction mb9 15:21 Drug: Potassium Effervescent Tablet 50 mEq Route: PO; mb9 16:32 Follow up: Response: No adverse reaction mb9 16:32 Not Given (Patient Refused): Tylenol 650 mg PO once mb9 Medication: 14:07 VIS not applicable for this client. mb9 Outcome: 17:35 Discharge ordered by . cp 17:36 Discharged to home ambulatory. mb9 17:36 Condition: stable 17:36 Discharge instructions given to patient, Instructed on discharge instructions, follow up and referral plans. Demonstrated understanding of instructions, follow-up care. 17:36 Patient left the ED. mb9 NIH Stroke Scale - NIH Stroke Score Date: 07/02/2022 Time: 13:17 Total Score = 0 1a. Level of Consciousness (LOC) - 0(Alert) 1b. Level of Consciousness (LOC) (Month \T\ Age) - 0(Both) 1c. LOC Commands (Open \T\ Closes Eyes/Water Superintendent) - 0(Both) 2. Best Gaze (Lateral Gaze Paresis) - 0(Normal) 3. Visual Field Loss - 0(No visual loss) 4. Facial Palsy - 0(Normal) 5a. Left Arm: Motor (10-second hold) - 0(No drift) 5b. Right Arm: Motor (10-second hold) - 0(No drift) 6a. Left Leg: Motor (5-second hold - always test supine) - 0(No drift) 6b. Right Leg: Motor (5-second hold - always test supine) - 0(No drift) 7. Limb Ataxia (finger/nose \T\ heel/valera - test with eyes open) - 0(Absent) 8. Sensory Loss (pinprick arms/legs/face) - 0(Normal) 9. Best Language: Aphasia (description/naming/reading) - 0(No aphasia) 10. Dysarthria (speech clarity - read or repeat words) - 0(Normal) 11. Extinction and Inattention (visual/tactile/auditory/spatial/personal) - 0(No abnormality) Initials: heber Signatures: Dispatcher [employer] EDMS Jovanna Chicas RN RN iw Page, Corey, PA PA cp Botello, Elizabeth eb Martinez, Maria mm9 Breneman, Mary Beth, RN RN [email or web address] Corrections: (The following items were deleted from the chart) 14:07 14:01 EKG done, by ED staff, reviewed by Kota [email or web address]
[2022-07-02 17:57] VITALS: O2SAT 100
[2022-07-02 18:02] VITALS: BP 155/94
--- NOTE | 2022-07-05 17:00 | EKG ---
Test Date: 2022-07-02 Test Time: 17:03:25 Acid Loader: ABHINAV MEASUREMENT RESULTS: Intervals: Rate: 75 MT: 160 QRSD: 122 QT: 426 QTc: 475 [place]: P: 47 MT: 160 QRS: -41 T: 1 INTERPRETIVE STATEMENTS: Normal sinus rhythm Left axis deviation Right bundle branch block Abnormal ECG Compared to ECG 07/02/2022 13:18:16 Left-axis deviation now present Left anterior fascicular block no longer present Bifascicular block no longer present Electronically Signed On 07-05-22 16:56:08 PHARMACY OPERATIONS SPECIALIST by Douglas Esparza
--- NOTE | 2022-07-05 17:01 | EKG ---
Test Date: 2022-07-02 Test Time: 13:18:16 Sample Coordinator: VIVI MEASUREMENT RESULTS: Intervals: Rate: 64 MD: 148 QRSD: 132 QT: 446 QTc: 460 [place]: P: 60 MD: 148 QRS: -51 T: 9 INTERPRETIVE STATEMENTS: Normal sinus rhythm Right bundle branch block Left anterior fascicular block Bifascicular block Abnormal ECG Compared to ECG 04/11/2017 15:31:44 No significant changes Electronically Signed On 07-05-22 16:56:33 SENIOR PROPERTY ACCOUNTANT by Douglas Esparza
== END 2022-07-02 17:36 | disposition home or self-care (01) ==
LOC: ER 13:03
DX: I11.9 Hypertensive heart disease without heart failure (principal); R52 Pain, unspecified; I10 Essential (primary) hypertension; Z95.1 Presence of aortocoronary bypass graft
CPT/HCPCS: 36415; 71045; 80048; 83735; 83880; 84484; 85025; 85610; 93005; 99285